=== PATIENT | male | born 1990 | race American Indian/Alaskan Native ===

== ENCOUNTER 2020-03-19 10:19 | Emergency (ER) | payer BC ==
[2020-03-19] MEDS ORDERED: IBUPROFEN 800 MG TAB PO ONE (10:56)
[2020-03-19 11:18] VITALS: BP 124/86
--- NOTE | 2020-03-19 11:20 | Emergency Department Report ---
ED Upper Extremity Inj HPI - General Chief Complaint: Extremity Injury, Upper Stated Complaint: RIGHT PAIN, FALL Time Seen by Provider: 03/19/20 10:53 Source: patient Mode of arrival: Ambulatory Limitations: No Limitations - History of Present Illness Initial Comments: This is a 30-year-old male nontoxic, well nourished in appearance, no acute signs of distress presents to the ED with c/o of right forearm and wrist pain 2 days. Patient stated that he had a ground level trip and fall and landed onto his forearm and wrist area. Patient denies any other trauma. Denies any neck, back, or head pains. Patient denies any numbness, tingling, fever, chills, nausea, vomiting, chest pain, shortness of breath, headache, stiff neck. Patient denies any joint swelling or joint redness. Patient denies decreased range of motion. Patient denies any allergies or significant past medical history. MD Complaint: Injury to:: right, forearm, wrist -: days(s) Other Extremity Injury: Wrist: Right, Forearm: Right Other Injuries: none Severity scale (0 -10): 8 Improves With: immobilization Worsens With: movement of extremity Context: fall Associated Symptoms: denies other symptoms. denies: weakness, numbness, neck pain, suspects foreign body, nausea/vomiting, heard/felt popping sensat - Related Data Previous Rx's Medication Instructions Recorded Last Taken Type Naproxen 500 mg PO Q12H PRN #12 tablet 03/19/20 Unknown Rx Allergies Allergy/AdvReac Type Severity Reaction Status Date / Time pollen extracts Allergy Itching Verified 03/19/20 10:24 ED Review of Systems ROS: Stated complaint: RIGHT PAIN, FALL Other details as noted in HPI Constitutional: denies: chills, fever Eyes: denies: eye pain, eye discharge, vision change ENT: denies: ear pain, throat pain Respiratory: denies: cough, shortness of breath, wheezing Cardiovascular: denies: chest pain, palpitations Endocrine: no symptoms reported Gastrointestinal: denies: abdominal pain, nausea, diarrhea Genitourinary: denies: urgency, dysuria Musculoskeletal: denies: back pain, joint swelling, arthralgia Skin: denies: rash, lesions Neurological: denies: headache, weakness, paresthesias Psychiatric: denies: anxiety, depression Hematological/Lymphatic: denies: easy bleeding, easy bruising ED Past Medical Hx - Past Medical History Previous Medical History?: No - Surgical History Past Surgical History?: Yes Additional Surgical History: right collar bone repair 2005, right collar bone plate removal 2007 - Social History Smoking Status: Never Smoker Substance Use Type: Alcohol - Medications Home Medications: Home Medications Medication Instructions Recorded Confirmed Last Taken Type Naproxen 500 mg PO Q12H PRN #12 tablet 03/19/20 Unknown Rx ED Physical Exam - General Limitations: No Limitations General appearance: alert, in no apparent distress - Head Head exam: Present: atraumatic, normocephalic - Eye Eye exam: Present: normal appearance - Neck Neck exam: Present: normal inspection, full ROM. Absent: tenderness, meningismus, lymphadenopathy - Respiratory Respiratory exam: Absent: respiratory distress - Extremities Exam Extremities exam: Present: normal inspection, full ROM, tenderness, normal capillary refill. Absent: joint swelling - Expanded Upper Extremity Exam Right General: Present: normal inspection Shoulder Exam: Present: normal inspection, full ROM. Absent: tenderness, swelling Upper Arm exam: Present: normal inspection, full ROM. Absent: tenderness, swelling Elbow exam: Present: normal inspection, full ROM. Absent: tenderness, swelling Forearm Wrist exam: Present: normal inspection, full ROM, tenderness, ecchymosis. Absent: swelling, abrasion, laceration, deformity, crepidus, dislocation, erythema, tenderness over anatomical snuff box, pain with axial thumb loading Hand Wrist exam: Present: normal inspection, full ROM. Absent: tenderness, swelling, abrasion, laceration, ecchymosis, deformity, crepidus, dislocation, erythema, amputation, nail avulsion, subungual hematoma Vascular: Present: normal capillary refill. Absent: vascular compromise (Neurovascular within normal limits) - Back Exam Back exam: Present: normal inspection, full ROM. Absent: tenderness, CVA tenderness (R), CVA tenderness (L), muscle spasm, paraspinal tenderness, vertebral tenderness, rash noted - Neurological Exam Neurological exam: Present: alert, oriented X3, normal gait - Psychiatric Psychiatric exam: Present: normal affect, normal mood - Skin Skin exam: Present: warm, dry, intact, normal color. Absent: rash ED Course Vital Signs 03/19/20 03/19/20 10:23 11:16 Temperature 98.0 F Pulse Rate 80 Respiratory 16 18 Rate Blood Pressure 124/86 O2 Sat by Pulse 99 Oximetry Vital Signs 03/19/20 03/19/20 10:23 11:16 Temperature 98.0 F Pulse Rate 80 Respiratory 16 18 Rate Blood Pressure 124/86 O2 Sat by Pulse 99 Oximetry - Reevaluation(s) Reevaluation #1: 03/19/20 11:19 Patient is speaking in full sentences with no signs of distress noted. ED Medical Decision Making - Radiology Data Referring Physician: ODILIA HOOKS Patient Name: FANY LIRA Date of : 1990 Sex: Male Report Date: 2020-03-19 Report Status: Finalized [address] [address] XRay Report Signed Patient: FANY LIRA MR#: [id number] : 1990 Acct:[id number] Age/Sex: 30 / M ADM Date: 03/19/20 Loc: ED Attending Dr: Ordering Physician: ODILIA HOOKS NP Date of Service: 03/19/20 Procedure(s): XR wrist 3+V RT Accession Number(s): [id number] cc: ODILIA HOOKS NP Fluoro Time In Minutes: RIGHT WRIST 3 VIEW(S) INDICATION / CLINICAL INFORMATION: Right wrist pain status post fall COMPARISON: None available. FINDINGS: BONES / JOINT(S): No acute fracture or subluxation. No significant arthritis. SOFT TISSUES: No significant abnormality. ADDITIONAL FINDINGS: None. Signer Name: Clayton Sommers MD Signed: 03/19/2020 11:32 AM Workstation Name: [id number] Transcribed By: TL Dictated By: Clayton Sommers MD Electronically Authenticated By: Clayton Sommers MD Signed Date/Time: 03/19/20 1132 DD/ 1131 TD/TT: Referring Physician: ODILIA HOOKS Patient Name: FANY LIRA Date of : 1990 Sex: Male Report Date: 2020-03-19 Report Status: Finalized [address] [address] XRay Report Signed Patient: FANY LIRA MR#: [id number] : 1990 Acct:[id number] Age/Sex: 30 / M ADM Date: 03/19/20 Loc: ED Attending Dr: Ordering Physician: ODILIA HOOKS NP Date of Service: 03/19/20 Procedure(s): XR forearm RT Accession Number(s): [id number] cc: ODILIA HOOKS NP Fluoro Time In Minutes: RIGHT FOREARM 2 VIEW(S) INDICATION / CLINICAL INFORMATION: Right forearm pain after fall COMPARISON: None available. FINDINGS: BONES / JOINT(S): No acute fracture or subluxation. No significant arthritis. SOFT TISSUES: No significant abnormality. ADDITIONAL FINDINGS: None. Signer Name: Clayton Sommers MD Signed: 03/19/2020 11:31 AM Workstation Name: [id number] Transcribed By: Dictated By: Clayton Sommers MD Electronically Authenticated By: Clayton Sommers MD Signed Date/Time: 03/19/20 113 DD/ 113 TD/TT: - Medical Decision Making This is a 30-year-old male that presents with right forearm and wrist strain. Patient is stable and was examined by me. I referred patient to an orthopedic doctor for further evaluation for possible MRI. X-ray has been obtained and dictated by the radiologist. Patient is notified of the x-ray report with noted by the patient. Patient does have normal gait with no tenderness and no joint swelling. No ecchymosis. no joint redness or swelling. Not warm to touch. No signs of cellulites present. Patient received a knee immobilize and patient stated has a walker at home. Patient was instructed to RICE therapy. Patient received Motrin for pain. Patient is discharged with Motrin. At time of discharge, the patient does not seem toxic or ill in appearance. No acute signs of distress noted. Patient agrees to discharge treatment plan of care. No further questions noted by the patient. Critical care attestation.: If time is entered above; I have spent that time in minutes in the direct care of this critically ill patient, excluding procedure time. ED Disposition Clinical Impression: Strain of right forearm Qualifiers: Encounter type: initial encounter Qualified Code(s): S56.911A - Strain of unspecified muscles, fascia and tendons at forearm level, right arm, initial encounter Strain of right wrist Qualifiers: Encounter type: initial encounter Qualified Code(s): S66.911A - Strain of unspecified muscle, fascia and tendon at wrist and hand level, right hand, initial encounter Disposition: TO HOME OR SELFCARE Is pt being admited?: No Does the pt Need Aspirin: No Condition: Stable Instructions: Wrist Injury (ED), RICE Therapy (ED) Additional Instructions: Follow-up with a orthopedic doctor in 3-5 days or if symptoms worsen and continue return to emergency room as soon as possible. Prescriptions: Naproxen 500 mg PO Q12H PRN #12 tablet PRN Reason: Pain , Severe (7-10) Referrals: PRIMARY CARE, [Referring] - 3-5 Days KATIE EVANS MD [Staff Physician] - 3-5 Days
--- NOTE | 2020-03-19 11:35 | XRay Report ---
RIGHT FOREARM 2 VIEW(S) INDICATION / CLINICAL INFORMATION: Right forearm pain after fall COMPARISON: None available. FINDINGS: BONES / JOINT(S): No acute fracture or subluxation. No significant arthritis. SOFT TISSUES: No significant abnormality. ADDITIONAL FINDINGS: None. Signer Name: Clayton Sommers MD Signed: 03/19/2020 11:31 AM Workstation Name: [id number]
--- NOTE | 2020-03-19 11:36 | XRay Report ---
RIGHT WRIST 3 VIEW(S) INDICATION / CLINICAL INFORMATION: Right wrist pain status post fall COMPARISON: None available. FINDINGS: BONES / JOINT(S): No acute fracture or subluxation. No significant arthritis. SOFT TISSUES: No significant abnormality. ADDITIONAL FINDINGS: None. Signer Name: Clayton Sommers MD Signed: 03/19/2020 11:32 AM Workstation Name: [id number]
== END 2020-03-19 12:06 | disposition home or self-care (01) ==
LOC: ED 10:19
DX: S56.911A Strain of unspecified muscles, fascia and tendons at forearm level, right arm, initial encounter (principal); S66.911A Strain of unspecified muscle, fascia and tendon at wrist and hand level, right hand, initial encounter; M25.561 Pain in right knee; Z98.890 Other specified postprocedural states; Z79.899 Other long term (current) drug therapy; W01.0XXA Fall on same level from slipping, tripping and stumbling without subsequent striking against object, initial encounter; Y93.89 Activity, other specified; Y92.89 Other specified places as the place of occurrence of the external cause; Y99.8 Other external cause status